=== PATIENT | male | born 2000 | race African-American/Black ===

== ENCOUNTER 2024-12-04 15:47 | Emergency (ER) | payer SELFPAY ==
[2024-12-04] MEDS: Diphtheria,Pertussis(Acell),Tetanus Vaccine 0.5 ML Syringe IM ONE (17:36)
[2024-12-04] MEDS: Lidocaine 1% 5 ML VIAL INJECT ONE (17:38)
== END 2024-12-04 18:07 | disposition home or self-care (01) ==
LOC: MW.ED 15:47
DX: S91.312A Laceration without foreign body, left foot, initial encounter (principal); Z23 Encounter for immunization; Z75.8 Other problems related to medical facilities and other health care; W25.XXXA Contact with sharp glass, initial encounter
CPT/HCPCS: 90471; 90715; 99282-25; 99283